=== PATIENT | female | born 1955 | race Caucasian/White ===

== ENCOUNTER 2022-07-13 18:36 | Observation (INO) | payer MEDICARE, OTHER, SELFPAY ==
[2022-07-13] VITALS (10 sets, daily range): BP systolic 101–125; BP diastolic 72–101; PULSE 106–125; RESP 16–29; TEMP 36.2–36.3; O2SAT 93–100; BMI 26.5
--- NOTE | 2022-07-13 19:16 | ED.GENADULT ---
HPI - General Adult General Chief complaint: Nausea/Vomiting/Diarrhea Stated complaint: nausea, vomiting, diarrhea Time Seen by Provider: 07/13/22 18:58 History of Present Illness HPI narrative: The patient is a 67-year-old woman with 4 year history of ovarian cancer, now with metastases and ascites, who has an indwelling abdominal drain that she drains every day. she has a Port-A-Cath. She continues on chemotherapy, most recently approximately 10 days ago. She is DNR, with consultation for hospice to be initiated tomorrow. She feels that she is dehydrated, due to 3 episodes of vomiting today and copious watery diarrheal stools, more than 5 episodes today. Onset this afternoon. Prior to this afternoon, she was in her usual baseline state. she denies fevers or chills with diaphoresis. Does feel weak fatigued and tired. No cough or rhinorrhea or nasal congestion. Does have baseline abdominal pain which is stable for her. She took tramadol and ibuprofen earlier today, which has controlled her pain. She called EMS, who administered 4 mg of Zofran intravenously via her port. She was transferred here for further management. Related Data Home Medications Medication Instructions Recorded Confirmed escitalopram oxalate 10 mg tablet 10 mg PO DAILY 07/13/22 07/13/22 (Lexapro) lorazepam 0.5 mg tablet (Ativan) 0.5 mg PO QID PRN Anxiety 07/13/22 07/13/22 ondansetron 8 mg disintegrating 8 mg PO Q8H PRN Constipation 07/13/22 07/13/22 tablet rosuvastatin 10 mg tablet 10 mg PO DAILY 07/13/22 07/13/22 sennosides 8.6 mg-docusate sodium 1 tab-cap PO BID 07/13/22 07/13/22 50 mg tablet (Senna with Docusate Sodium) tramadol 50 mg tablet 50 mg PO Q6H PRN Pain 07/13/22 07/13/22 Allergies Allergy/AdvReac Type Severity Reaction Status Date / Time TAMMY Inhibitors Allergy Cough Verified 07/13/22 18:56 Review of Systems Review of Systems: All systems reviewed & are unremarkable except as noted in HPI and below Constitutional: Constitutional: Reports no additional constitutional complaints, Reports anorexia, Reports body ache(s), Denies chills, Denies excessive sweating, Reports fatigue, Denies fever(s), Denies frequent falls, Denies headache(s), Reports malaise and Reports poor appetite Eyes: Eyes: Reports no additional eye complaints, Denies blurry vision, Denies change in vision, Denies irritation, Denies itchy eyes and Denies photophobia ENT: Reports system reviewed and no additional complaints, except as documented, Reports Normal hearing present, Denies change in voice, Denies dysphagia, Denies vertigo, Denies dizziness, Denies ear discharge, Denies headache(s), Denies hearing loss, Denies hoarseness, Denies nasal congestion, Denies neck pain, Denies sinus pressure, Denies sore throat and Denies throat swelling Cardiovascular: Cardiovascular: Reports no additional cardiovascular complaints, Denies chest pain, Denies syncope, Denies rapid heart rate, Denies irregular heart rhythm, Denies leg edema, Denies dyspnea and Denies slow heart rate Respiratory: Respiratory: Reports no additional respiratory complaints, Denies cough, Denies dyspnea, Denies stridor and Denies wheezing Gastrointestinal: Gastrointestinal: Reports no additional gastrointestinal complaints, Reports abdominal pain ( Chronic), Denies melena, Denies hematochezia, Denies dysphagia, Reports diarrhea, Reports nausea and Reports vomiting Genitourinary: Genitourinary: Denies hematuria, Denies urinary frequency, Denies dysuria, Denies flank pain and Denies urinary urgency Musculoskeletal: Musculoskeletal: Reports no additional musculoskeletal complaints, Denies abnormal gait, Denies back pain, Denies myalgias, Denies arthralgias, Denies joint swelling, Denies limited range of motion, Denies muscle cramps, Denies muscle weakness, Denies neck pain and Denies numbness Integumentary/Breasts: Skin/Breast: Reports system reviewed and no additional complaints, except as Janneth guidry
[2022-07-13 19:34] LABS: Basophils Absolute Auto 0.05 K/mm3 (0.00-0.10); Basophils Percent Auto 0.5 % (0.0-1.0); Eosinophils Absolute Auto 0.01 K/mm3 (0.02-0.50); Eosinophils Percent Auto 0.1 % (1.0-6.0); Hematocrit 36.3 % (35.0-42.0); Hemoglobin 11.4 g/dL (11.7-13.8); Immature Granulocyte Percent A 0.9 % (0.0-0.0); Lymphocytes Percent Auto 9.3 % (18.0-42.0); Mean Corpuscular HGB Conc 31.4 g/dL (32.0-36.0); Mean Corpuscular Hemoglobin 28.9 pg (27.0-31.0); Mean Corpuscular Volume 91.9 fL (78.0-102.0); Mean Platelet Volume 8.8 fl (9.2-11.8); Monocytes Absolute Auto 1.08 K/mm3 (0.10-0.90); Monocytes Percent Auto 10.1 % (2.0-11.0); Neutrophils Absolute Auto 8.5 K/mm3 (1.7-7.2); Neutrophils Percent Auto 79.1 % (50.0-70.0); Platelet Count Result 519 K/mm3 (150-420); Red Blood Count 3.95 M/mm3 (4.20-5.40); Red Cell Distribution Width 21.5 % (11.6-14.4); White Blood Count 10.7 K/mm3 (4.8-10.8)
[2022-07-13] MEDS: LOPERAMIDE HCL 2 MG CAPSULE 4 MG PO (19:44)
[2022-07-13] MEDS: SODIUM CHLORIDE 0.9% IV 1,000 ML 999 ML IV CONT ×2 (19:44→21:02)
[2022-07-13] MEDS: DIPHENOXYLATE/ATROPINE (*CRX) 2.5 MG TABLET 2 TABLET PO (19:46)
[2022-07-13 19:48] LABS: Alanine Aminotransferase 22 U/L (14-59); Albumin Level 1.2 g/dL (3.4-5.0); Alkaline Phosphatase 126 U/L (46-116); Amylase 412 U/L (25-115); Anion Gap 13 mmol/L (8-16); Aspartate Amino Transferase 32 U/L (15-37); Bilirubin,Total 0.2 mg/dL (0.00-1.00); Blood Urea Nitrogen 58 mg/dL (7-18); Calcium 9.3 mg/dL (8.5-10.1); Carbon Dioxide 20 mmol/L (21-32); Chloride 103 mmol/L (98-108); Estimated CRCL calculation 26 ml/min; Estimated Glomerular Filt Rate 26; Glucose 122 mg/dL (70-99); Lipase 12 U/L (16-77); Magnesium 1.6 mg/dL (1.8-2.4); Osmolality Calculated 299 mOsm/kg (285-295); Potassium 4.9 mmol/L (3.5-5.1); Sodium 136 mmol/L (136-145); Total Protein 5.8 g/dL (6.4-8.2)
[2022-07-13 19:54] LABS: Lactic Acid Reflex 1.1 mmol/L (0.4-2.0)
[2022-07-13] MEDS: MAGNESIUM SULF 2 GM/WATER 50ML 2 GM/50 ML BAG IVPB (20:03)
[2022-07-13 20:10] LABS: Influenza A QL RT-PCR Negative (Negative); Influenza B QL RT-PCR Negative (Negative); SARS-CoV-2 RNA PCR Positive (Negative)
--- NOTE | 2022-07-13 20:10 | PC.NURSE ---
RN calls Hospitalist on duty for ERP. Hospitalist returns a call a minute later. ERP states after conversation with Hospitalist that pt has been accepted for observation.
[2022-07-13 20:11] LABS: Occult Blood Negative (Negative)
[2022-07-13 20:12] LABS: RSV RNA, RT-PCR Negative (Negative)
--- NOTE | 2022-07-13 20:23 | PC.NURSE ---
RN obtains a bed number 201 and calls for pt to be admitted under observation. A belongings list is obtained.
--- NOTE | 2022-07-13 20:45 | PC.NURSE ---
Pt states that she is starting to feel nauseous and requests Zofran. RN reports to ERP who orders 4mg of Zofran IV.
[2022-07-13] MEDS: ONDANSETRON INJ 4 MG/2 ML VIAL IV PUSH (21:05)
--- NOTE | 2022-07-13 21:53 | ADMGEN ---
This patient, Rosanna Manzanares, was admitted to 2nd Floor Room 201-1. Patient oriented to hospital policies and general routines including ID bracelet, bed and alarms, visiting hours, pain management, procedures, bathroom and other care routines, personal items, smoking policy, room service/diet, and visiting hours. Patient are encouraged to report perceived risks to care and to ask questions if they do not understand what they are told or what they should do.
[2022-07-13] MEDS: SODIUM CHLORIDE 0.9% IV 1,000 ML 100 ML IV CONT (22:16)
[2022-07-14] VITALS: BP 116/65; PULSE 98; RESP 15; TEMP 36.6; O2SAT 97
[2022-07-14] MEDS: ONDANSETRON INJ 4 MG/2 ML VIAL IV PUSH ×3 (02:55→17:49)
[2022-07-14] MEDS: LORazepam (*CRX) 0.5 MG TABLET PO ×2 (05:28→20:11)
[2022-07-14 05:38] LABS: Basophils Absolute Auto 0.03 K/mm3 (0.00-0.10); Basophils Percent Auto 0.3 % (0.0-1.0); Eosinophils Absolute Auto 0.04 K/mm3 (0.02-0.50); Eosinophils Percent Auto 0.5 % (1.0-6.0); Hematocrit 31.2 % (35.0-42.0); Hemoglobin 9.6 g/dL (11.7-13.8); Immature Granulocyte Absolute 0.07 K/mm3 (0.00-0.00); Immature Granulocyte Percent A 0.8 % (0.0-0.0); Lymphocytes Absolute Auto 1.32 K/mm3 (1.10-4.50); Lymphocytes Percent Auto 15.3 % (18.0-42.0); Mean Corpuscular HGB Conc 30.8 g/dL (32.0-36.0); Mean Corpuscular Volume 94.3 fL (78.0-102.0); Mean Platelet Volume 8.7 fl (9.2-11.8); Monocytes Absolute Auto 1.12 K/mm3 (0.10-0.90); Neutrophils Absolute Auto 6.1 K/mm3 (1.7-7.2); Neutrophils Percent Auto 70.1 % (50.0-70.0); Platelet Count Result 366 K/mm3 (150-420); Red Blood Count 3.31 M/mm3 (4.20-5.40); Red Cell Distribution Width 21.9 % (11.6-14.4); White Blood Count 8.6 K/mm3 (4.8-10.8)
[2022-07-14 05:47] LABS: Anion Gap 10 mmol/L (8-16); Blood Urea Nitrogen 54 mg/dL (7-18); Calcium 8.3 mg/dL (8.5-10.1); Carbon Dioxide 19 mmol/L (21-32); Chloride 111 mmol/L (98-108); Estimated CRCL calculation 29 ml/min; Estimated Glomerular Filt Rate 32; Glucose 87 mg/dL (70-99); Osmolality Calculated 303 mOsm/kg (285-295); Potassium 5.6 mmol/L (3.5-5.1); Sodium 140 mmol/L (136-145)
[2022-07-14 08:00] VITALS: BP 106/80; PULSE 98; RESP 16; TEMP 36.1; O2SAT 99
[2022-07-14] MEDS: SODIUM CHLORIDE 0.9% IV 1,000 ML 100 ML IV CONT ×2 (08:28→17:48)
[2022-07-14] MEDS: traMADol HCL (*CRX) 25 MG TABLET PO ×2 (09:47→18:10)
[2022-07-14] MEDS: IBUPROFEN 400 MG TABLET PO ×2 (09:47→18:08)
[2022-07-14] MEDS: ESCITALOPRAM OXALATE 10 MG TABLET PO (09:48)
--- NOTE | 2022-07-14 12:23 | PM.IMHP ---
H&P: HPI History of Present Illness Date/Time: 07/14/22 12:23 Chief Complaint: Nausea, vomiting and diarrhea Narrative: This is a 67-year-old female who metastatic cancer who discontinued chemo and the plan was to start hospice in today was brought in by family as she has been having nausea vomiting and diarrhea. Patient has that abdominal port that she drained herself at home. Patient has quite a bit of pain at this time patient has elected to be admitted for the nausea vomiting Parres some of the Lexapro lytes for possible therapy. After review with physical therapy patient does have some weakness will likely due to the end-stage metastatic cancer and the COVID virus he is able to stand and pivot what she normally does at home we will concern her energy as were not going to improve her condition or outcome. We will treat and plan for possible discharge in the morning. Patient's labs today as potassium 5.6, sodium 140, BUN 54, creatinine 1.62, RBCs 3.31, WBCs 8.6, hemoglobin 9.6, platelets 366 Review of Systems Review of Systems: abdominal pain PMFSH Social History Social History Smoking status: Never smoker Alcohol intake: former Substance use type: prescription drug Lack of Transportation: No Lack of Food: Never True Current Housing: I Have Housing Concerned About Future Housing: No Difficulty Paying Gas/Electric Bills: No Difficulty Paying for Meds: No Currently Unemployed: No Education: Master's Degree or Higher Difficulty w/ Childcare or Family Care: No Spiritual care concerns: Yes (Pastor Antonio from [facility]) Meds Home Medications and Allergies Home Medications Medication Instructions Recorded Confirmed Type escitalopram oxalate 10 mg tablet 10 mg PO DAILY 07/13/22 07/13/22 History (Lexapro) lorazepam 0.5 mg tablet (Ativan) 0.5 mg PO QID PRN Anxiety 07/13/22 07/13/22 History ondansetron 8 mg disintegrating 8 mg PO Q8H PRN Constipation 07/13/22 07/13/22 History tablet sennosides 8.6 mg-docusate sodium 1 tab-cap PO BID 07/13/22 07/13/22 History 50 mg tablet (Senna with Docusate Sodium) tramadol 50 mg tablet 50 mg PO Q6H PRN Pain 07/13/22 07/13/22 History ibuprofen 400 mg PO BID PRN Abdominal Pain 07/14/22 07/14/22 History Allergies Allergy/AdvReac Type Severity Reaction Status Date / Time TMAMY Inhibitors Allergy Cough Verified 07/13/22 18:56 Vital Signs Vital Signs - 24 hr 07/13/22 18:36 07/13/22 18:36 07/13/22 19:00 Temperature 97.4 F L Pulse Rate 125 H 119 H Respiratory Rate 16 17 Blood Pressure 106/82 Pulse Oximetry 97 93 Oxygen Delivery Room Air Room Air 07/13/22 19:01 07/13/22 19:16 07/13/22 19:31 Temperature Pulse Rate 124 H 122 H 120 H Respiratory Rate 21 H 29 H Blood Pressure 112/89 109/72 125/101 H Pulse Oximetry 94 97 96 Oxygen Delivery 07/13/22 19:45 07/13/22 19:48 07/13/22 20:16 Temperature Pulse Rate 119 H 121 H 109 H Respiratory Rate 19 23 H 20 Blood Pressure 101/81 Pulse Oximetry 96 100 97 Oxygen Delivery 07/13/22 20:17 07/13/22 21:15 07/14/22 00:00 Temperature 97.1 F L 97.8 F Pulse Rate 106 H 108 H 98 Respiratory Rate 20 18 15 Blood Pressure 104/77 117/75 116/65 Pulse Oximetry 98 100 97 Oxygen Delivery Room Air Room Air Room Air 07/14/22 08:00 07/13/22 19:01 Temperature 97 F L 97.4 F L Pulse Rate 98 125 H Respiratory Rate 16 16 Blood Pressure 106/80 106/82 Pulse Oximetry 99 97 Oxygen Delivery Room Air Room Air Exam Narrative: GENERAL:Ill-appearing,Pale, and in no acute distress. HEAD:Normocephalic, EYES: PERRLA and EOMI. ENT: Nares clear, no rhinorrhea or epistaxis. Mucous membranes moist. CHEST: Clear to auscultation. No respiratory distress. HEART: Regular rate and rhythm. Normal peripheral pulses. ABDOMEN: Soft, nontender, distended, normal active bowel sounds.left side abdominal port for draini
--- NOTE | 2022-07-14 15:40 | PC.NURSE ---
Assisted pt with pluerex drain. Pt drained 1000ml using sterile procedure and home supplies.
[2022-07-14 16:00] VITALS: BP 118/82; PULSE 98; RESP 15; TEMP 36.3; O2SAT 99
[2022-07-14 20:00] VITALS: PULSE 98; RESP 15; O2SAT 99
[2022-07-14] MEDS: ACETAMINOPHEN 325 MG TABLET 650 MG PO (20:11)
[2022-07-15] VITALS: BP 125/77; PULSE 86; RESP 16; TEMP 36.3; O2SAT 97
[2022-07-15] MEDS: SODIUM CHLORIDE 0.9% IV 1,000 ML 100 ML IV CONT (04:26)
[2022-07-15 08:00] VITALS: BP 125/71; PULSE 87; RESP 17; TEMP 36; O2SAT 98
[2022-07-15] MEDS: ONDANSETRON INJ 4 MG/2 ML VIAL IV PUSH (09:06)
[2022-07-15] MEDS: IBUPROFEN 400 MG TABLET PO (09:06)
[2022-07-15] MEDS: traMADol HCL (*CRX) 25 MG TABLET PO (09:07)
[2022-07-15] MEDS: ESCITALOPRAM OXALATE 10 MG TABLET PO (09:07)
[2022-07-15 12:00] LABS: Hematocrit 30.9 % (35.0-42.0); Hemoglobin 9.4 g/dL (11.7-13.8); Mean Corpuscular HGB Conc 30.4 g/dL (32.0-36.0); Mean Corpuscular Hemoglobin 28.6 pg (27.0-31.0); Mean Corpuscular Volume 93.9 fL (78.0-102.0); Mean Platelet Volume 8.3 fl (9.2-11.8); Platelet Count Result 351 K/mm3 (150-420); Red Blood Count 3.29 M/mm3 (4.20-5.40); Red Cell Distribution Width 21.8 % (11.6-14.4)
[2022-07-15 12:09] LABS: Anion Gap 9 mmol/L (8-16); Blood Urea Nitrogen 43 mg/dL (7-18); Calcium 7.9 mg/dL (8.5-10.1); Carbon Dioxide 19 mmol/L (21-32); Chloride 111 mmol/L (98-108); Estimated CRCL calculation 35 ml/min; Estimated Glomerular Filt Rate 41; Glucose 69 mg/dL (70-99); Osmolality Calculated 296 mOsm/kg (285-295); Potassium 5.2 mmol/L (3.5-5.1); Sodium 139 mmol/L (136-145)
--- NOTE | 2022-07-15 13:00 | PM.DS ---
DS: Admitting Diagnosis Discharge Date 07/15/2022 Admitting Diagnosis Weakness, nausea vomiting, End stage cancer DS: Discharge Diagnosis Discharge Diagnosis (1) Acute kidney injury superimposed on chronic kidney disease: Code(s): N17.9 - Acute kidney failure, unspecified; N18.9 - Chronic kidney disease, unspecified Status: Acute Assessment and Plan: IV fluids Avoid any nephrotoxic medication (2) Acute dehydration: Code(s): E86.0 - Dehydration Status: Acute Assessment and Plan: IV fluids monitor electrolytes (3) Hypomagnesemia: Code(s): E83.42 - Hypomagnesemia Status: Acute Assessment and Plan: IV magnesium continue to monitor electrolytes (4) 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: Code(s): C56.9 - Malignant neoplasm of unspecified ovary; C78.6 - Secondary malignant neoplasm of retroperitoneum and peritoneum Status: Acute Assessment and Plan: Patient no longer doing chemo plan to go on hospice once discharged (5) DNR no code (do not resuscitate): Code(s): Z66 - Do not resuscitate Status: Acute (6) Acute COVID-19: Code(s): U07.1 - COVID-19 Status: Acute Assessment and Plan: asymptomatic besides weakness no respiratory DS: Summary Hospital Course Reason for hospitalization: Cancer METs with nausea and vomiting and weakness Hospital Course: This is a [age]-year-old woman comes in with weakness patient was going to go on hospice but had increased weakness with nausea and vomiting she is a DNR dehydrated patient would like to see if she would qualify for some physical therapy. While here patient was seen for by physical therapy she is at her baseline she has intra-abdominal access when she drains on a daily basis due to ascites. Patient has been able to eat and drink more had some nausea but no vomiting patient was kept for 24 hours at this time she is ready to go home and family educated on reconsidering hospice and possibility of palliative care Time Spent with Patient Time attestation: Total time spent providing and/or coordinating discharge services: Exam Narrative: GENERAL:Ill-appearing,Pale, and in no acute distress. HEAD:Normocephalic, EYES: PERRLA ENT: Nares clear, no rhinorrhea or epistaxis. Mucous membranes moist. CHEST: Clear to auscultation. No respiratory distress. HEART: Regular rate and rhythm. Normal peripheral pulses. ABDOMEN: Soft, nontender, distended, normal active bowel sounds.left side abdominal port for draining EXTREMITIES: Normal range of motion. No edema. SKIN: Warm, dry, no rash. NEURO: No focal deficits. Alert and oriented x3. DS: Data Data Completed and Pending Labs on day of discharge: Labs from last 24 hours 07/15/22 07/15/22 11:39 11:39 WBC 8.0 RBC 3.29 L Hgb 9.4 L Hct 30.9 L MCV 93.9 MCH 28.6 MCHC 30.4 L RDW 21.8 H Plt Count 351 MPV 8.3 L Sodium 139 Potassium 5.2 H Chloride 111 H Carbon Dioxide 19 L Anion Gap 9 BUN 43 H Creatinine 1.31 H Estim Creat Clear Calc 35 Estimated GFR 41 L Glucose 69 L Calculated Osmolality 296 H Calcium 7.9 L Discharge Plan Discharge Attending physician on discharge: Jose Hernandez Discharging Clinician: Ignacio Son Anticipated Discharge Date/Time: 07/15/22 12:47 Patient Disposition: Home, Self-Care Activity: may shower and as tolerated Diet: as tolerated Wound Care Instructions: follow printed instructions Discharge Instructions: Follow up with your oncologist You and your family may want to reconsider Hospice when you feel like your ready for it. Patient Instructions: Antibiotic Form, Lorazepam (By mouth), Stomach Cancer (DC), Self Care Measures With Cancer (DC), Ascites (DC), COVID-19 (Coronavirus Disease 2019) (DC) Stand Alone Forms: General Discharge Information Follow-up/Referrals: Reyna
[2022-07-15] MEDS: LORazepam (*CRX) 0.5 MG TABLET PO (14:26)
--- NOTE | 2022-07-15 14:30 | PC.NURSE ---
Deaccessed right subclavian port with heparin flush.
--- NOTE | 2022-07-15 15:10 | PC.NURSE ---
Discharge packet reviewed with pt. Pt escorted via wheelchair to front of hospital and assisted into private vehicle.
--- NOTE | 2022-07-20 09:40 | PC.NURSE ---
Pt states she received and understood her discharge instructions. Pt has no other comments.
== END 2022-07-15 15:10 | disposition home or self-care (01) ==
LOC: CHSED 20:18 → CHS2ND 20:31
PROVIDERS: Admitting Provider Internal Medicine; Emergency Provider Emergency Medicine; PCP Internal Medicine; Visit Provider Nurse Practitioner Family
DX: N17.9 Acute kidney failure, unspecified (principal); C56.9 Malignant neoplasm of unspecified ovary; C78.6 Secondary malignant neoplasm of retroperitoneum and peritoneum; E86.0 Dehydration; E83.42 Hypomagnesemia; R18.8 Other ascites; U07.1 COVID-19; Z66 Do not resuscitate
CPT/HCPCS: 36415; 80048; 80053; 82150; 83605; 83690; 83735; 85025; 85027; 87045; 87269; 87272; 87324; 87427; 87637; 89055; 96361; 96365; 96375; 96376; 97161; 99285; A9270; G0378; J2405; J3475; J7030